=== PATIENT | female | born 1995 | race Hispanic/Latino ===

== ENCOUNTER 2021-04-20 09:33 | Outpatient (CLI) | payer BC ==
--- NOTE | 2021-04-21 09:11 | Ultrasound Report ---
Pelvic Ultrasound HISTORY: OVARIAN DYSFUNCTION, UNSPECIFIED. TECHNIQUE: Grayscale and color imaging performed. COMPARISON: None FINDINGS: Transabdominal imaging was performed. Uterus measures 6.4 x 2.7 x 6.5 cm with endometrial echo complex measuring 1.2 cm. Right ovary measur es 5.3 x 1.9 x 3.9 cm and the left ovary measures 6.6 x 1.8 x 4.2 cm. There is a simple cyst in the l eft ovary measuring 1.9 cm in maximal dimension. No appreciable pelvic free fluid. IMPRESSION: Simple left ovarian cyst. Otherwise unremarkable exam. Signer Name: Cecilio Rosario MD Signed: 04/21/2021 8:08 AM Workstation Name: [id number]
== END 2021-04-20 09:34 | disposition home or self-care (01) ==
LOC: US 09:33
PROVIDERS: ATTEND Internal Medicine
DX: N83.202 Unspecified ovarian cyst, left side (principal); E28.9 Ovarian dysfunction, unspecified
CPT/HCPCS: 76856